=== PATIENT | female | born 1980 | race Caucasian/White ===

== ENCOUNTER 2024-01-17 06:35 | Emergency (ER) | payer SELFPAY ==
[~2024-01-17] VITALS: Ht 162.6 cm; Wt 127.0 kg
[~2024-01-17 06:35] MED LIST: ALBU.083IS IH; BUDE6HFA INH; CITA20 PO; FAMO20 PO; METPRE4DP PO; ONDA4ODT MM
[2024-01-17 06:43] VITALS: BP 141/98
[2024-01-17] MEDS ORDERED: Ketorolac Tromethamine 30mg Vial IM ONE (07:05)
== END 2024-01-17 08:58 | disposition home or self-care (01) ==
LOC: ER 06:35
DX: M25.531 Pain in right wrist (principal); J45.909 Unspecified asthma, uncomplicated; I10 Essential (primary) hypertension; Z79.899 Other long term (current) drug therapy
CPT/HCPCS: 29125; 73110; 96372-59; 99283-25; J1885

== ENCOUNTER 2024-09-13 15:10 | Emergency (ER) | payer OTHER ==
[~2024-09-13] VITALS: Ht 162.6 cm; Wt 124.7 kg
[2024-09-13] MEDS ORDERED: Famotidine 20 MG Tab PO ONE (15:45)
[2024-09-13] MEDS ORDERED: DiphenhydrAMINE HCl 50 MG Cap PO ONE (15:45)
[2024-09-13 16:46] VITALS: BP 144/97
== END 2024-09-13 16:45 | disposition home or self-care (01) ==
LOC: ER 15:10
DX: T78.40XA Allergy, unspecified, initial encounter (principal); X58.XXXA Exposure to other specified factors, initial encounter; J45.909 Unspecified asthma, uncomplicated
CPT/HCPCS: 99282; A9270

== ENCOUNTER 2024-09-23 20:28 | Emergency (ER) | payer OTHER ==
[~2024-09-23] VITALS: Ht 162.6 cm; Wt 124.3 kg
[2024-09-23 20:33] VITALS: BP 142/84
[2024-09-23] MEDS ORDERED: Dexamethasone Sod Phos 10 MG/ML 1ML VIAL IV ONE (20:40)
[2024-09-23] MEDS ORDERED: NS 1,000 ML IV SCH (20:40)
[2024-09-23] MEDS ORDERED: Pantoprazole Sodium 40 MG Injection IV ONE (20:40)
[2024-09-23] MEDS ORDERED: DiphenhydrAMINE HCl 50 MG/ML 1ML Vial IV ONE (20:40)
== END 2024-09-23 21:54 | disposition home or self-care (01) ==
LOC: ER 20:28
DX: T78.1XXA Other adverse food reactions, not elsewhere classified, initial encounter (principal); L50.0 Allergic urticaria; R19.7 Diarrhea, unspecified; J45.909 Unspecified asthma, uncomplicated; Z79.899 Other long term (current) drug therapy
CPT/HCPCS: 96374; 96375; 99284-25; J1100; J1200; J2470; J7030

== ENCOUNTER 2024-11-27 06:05 | Emergency (ER) | payer OTHER ==
[~2024-11-27] VITALS: Ht 167.6 cm; Wt 118.8 kg
[2024-11-27] MEDS ORDERED: MethylPREDNISolone Sod Succ 125 MG Vial IM ONE (06:25)
[2024-11-27] MEDS ORDERED: DiphenhydrAMINE HCl 50 MG/ML 1ML Vial IM ONE (06:25)
[2024-11-27] MEDS ORDERED: EPIPEN0.3 MG/0.1 IM (06:26)
[2024-11-27] MEDS ORDERED: PRED20 PO (06:26)
[2024-11-27] MEDS ORDERED: BENADRYL25 M1 PO (06:26)
[2024-11-27] MEDS ORDERED: DiphenhydrAMINE HCl 50 MG Cap PO ONE (06:30)
[2024-11-27] MEDS ORDERED: DiphenhydrAMINE HCL 25 MG Cap PO ONE (06:30)
[2024-11-27 07:07] VITALS: BP 103/78
== END 2024-11-27 07:08 | disposition home or self-care (01) ==
LOC: ER 06:05
DX: T78.40XA Allergy, unspecified, initial encounter (principal); J45.909 Unspecified asthma, uncomplicated; Z79.51 Long term (current) use of inhaled steroids; Z79.899 Other long term (current) drug therapy; Z88.9 Allergy status to unspecified drugs, medicaments and biological substances; Z87.892 Personal history of anaphylaxis
CPT/HCPCS: 96372; 99282-25; A9270; J2919

== ENCOUNTER 2025-01-07 01:09 | Emergency (ER) | payer OTHER ==
[~2025-01-07] VITALS: Ht 162.6 cm; Wt 122.5 kg
[~2025-01-07 01:09] MED LIST changes: +BENADRYL25 M1 PO; +EPIPEN0.3 MG/0.1 IM; +PRED20 PO
[2025-01-07] MEDS ORDERED: NEBIVOLOL HCL10 MG PO (02:07)
[2025-01-07] MEDS ORDERED: CYMBALTA30 M2 PO (02:07)
[2025-01-07] MEDS ORDERED: PredniSONE 20 MG Tab PO ONE (04:20)
[2025-01-07] MEDS ORDERED: Loratadine 10 MG Tab PO ONE (04:20)
[2025-01-07] MEDS ORDERED: Famotidine 20 MG Tab PO ONE (04:20)
[2025-01-07] MEDS ORDERED: DiphenhydrAMINE HCl 50 MG Cap PO ONE (04:20)
[2025-01-07] MEDS ORDERED: Ketorolac Tromethamine 30mg Vial IM ONE (04:20)
[2025-01-07] MEDS ORDERED: FAMO20 PO (04:38)
[2025-01-07] MEDS ORDERED: LORA10ER PO (04:38)
[2025-01-07] MEDS ORDERED: DELTASONE20 MG PO (04:38)
[2025-01-07 04:43] VITALS: BP 138/94
== END 2025-01-07 04:43 | disposition home or self-care (01) ==
LOC: ER 01:09
DX: L50.9 Urticaria, unspecified (principal); J45.909 Unspecified asthma, uncomplicated; Z79.52 Long term (current) use of systemic steroids; Z79.899 Other long term (current) drug therapy
CPT/HCPCS: 96372; 99283-25; A9270; J1885; J7512

== ENCOUNTER 2025-08-31 10:24 | Emergency (ER) | payer OTHER ==
[~2025-08-31] VITALS: Ht 162.6 cm; Wt 127.0 kg
[~2025-08-31 10:24] MED LIST changes: +CYMBALTA30 M2 PO; +DELTASONE20 MG PO; +LORA10ER PO; +NEBIVOLOL HCL10 MG PO
[2025-08-31] MEDS ORDERED: DiphenhydrAMINE HCl 50 MG/ML 1ML Vial IV ONE (10:40)
[2025-08-31] MEDS ORDERED: LORazepam 2 MG/ML 1ML Injection IV ONE (10:50)
[2025-08-31 13:15] VITALS: BP 120/70
== END 2025-08-31 13:23 | disposition home or self-care (01) ==
LOC: ER 10:24
DX: T78.40XA Allergy, unspecified, initial encounter (principal); Z59.89 Other problems related to housing and economic circumstances; J45.909 Unspecified asthma, uncomplicated; Z79.52 Long term (current) use of systemic steroids; Z79.899 Other long term (current) drug therapy
CPT/HCPCS: 96374; 96375; 99283-25; J1200; J2060; J2919